=== PATIENT | female | born 1930 | race Caucasian/White ===

== ENCOUNTER 2016-12-04 14:43 | Inpatient (IN) | payer MEDICARE ==
[~2016-12-04] VITALS: Ht 165.1 cm; Wt 51.2 kg
--- NOTE | 2016-12-04 17:42 | DIAGNOSTIC IMAGING REPORT ---
PROCEDURE: CT HEAD WITHOUT CONTRAST INDICATION: Ground level fall with right-sided pain, initial encounter TECHNIQUE: Noncontrast axial images with sagittal and coronal reformations. COMPARISON: None. FINDINGS: Large right frontal contusion associated with left cerebellar and bifrontal parenchymal contusions. Mild cortical atrophy and normal ventricular system. Minor white matter chronic ischemic changes . Tiny left frontal subdural hematoma. There is no mass, CVA or midline shift. Visualized mastoids and sinuses are clear. IMPRESSION: 1. Large right frontal scalp contusion with left cerebellar and bifrontal parenchymal contusions 2. Tiny left frontal subdural hematoma 3. Mild atrophy and minor white matter chronic ischemic changes 4. Findings discussed with Dr. Rogers at 05:39 p.m., [place] Standard Time.
--- NOTE | 2016-12-04 17:43 | DIAGNOSTIC IMAGING REPORT ---
PROCEDURE: CT CERVICAL SPINE W/O CONTRAST CLINICAL INDICATION: Ground level fall with neck pain, initial encounter TECHNIQUE: Noncontrast axial images with sagittal and coronal reformations. COMPARISON: None. FINDINGS: No fracture or dislocation. Severe degenerative changes most prominent at C5-6 and C6-7. Straightening of the cervical spine. Moderate bilateral C5-6 and C6-7 foraminal and spinal stenosis. Paraspinal soft tissues are unremarkable. IMPRESSION: 1. No acute change 2. Severe degenerative changes with C5-6 and C6-7 bilateral foraminal and spinal stenosis 3. Results discussed with Dr. Rogers All CT scans at this facility use dose modulation, iterative reconstruction, and/or weight-based dosing when appropriate to reduce radiation dose to as low as reasonably achievable.
--- NOTE | 2016-12-04 18:25 | ED ORDER SUMMARY ---
..... Patient: MICHELET ECHEVARRIA OrderSheet [facility] VisitID: [id number] [place] [address] 85y, F Registration Date/Time: 12/04/2016 ORDER SHEET Weight: 55.7 kg (stated) Allergies: Roxicet GENERAL ORDERS: CT Cervical Spine wo Cont Urgent (16:51 12/04/2016 DDean R.N. verbal order read back to Noa ZARCO) (Ack 16:55 Gris) (18:01 Chad) CT Head wo Cont Urgent (16:51 12/04/2016 DDean R.N. verbal order read back to Noa ZARCO) (Ack 16:55 Gris) (18:01 Chad) CBC w Diff Urgent (18:14 12/04/2016 Noa ZARCO) (Ack 18:15 TBergley) (19:21 DDean R.N.) CMP Urgent (18:14 12/04/2016 Noa ZARCO) (Ack 18:15 TBergley) (19:21 DDean R.N.) PT with INR Urgent (18:14 12/04/2016 Noa ZARCO) (Ack 18:15 TBergley) (19:21 DDean R.N.) UA-Culture if indicated Urgent (18:17 12/04/2016 Noa ZARCO) (Ack 18:21 TBergley) (19:36 ALawrence ER Tech1) Hip 2V Right w AP Pelvis Urgent (18:37 12/04/2016 DDean R.N. verbal order read back to Noa ZARCO) (Ack 18:46 TBergley) (18:51 DDean R.N.) MEDICATION ORDERS: Tylenol PO 500 mg (NOW) (17:05 12/04/2016 DDean R.N. per protocol) (17:07 DDean R.N.) Zofran ODT PO 4 mg (NOW) (17:06 12/04/2016 DDean R.N. per protocol) (17:08 DDean R.N.) Tdap IM 0.5 mL (NOW) (17:53 12/04/2016 Noa ZARCO) (Ack 18:37 DDean R.N.) (20:24 DDean R.N.) IV FLUIDS: IV Saline Lock (18:14 12/04/2016 Noa ZARCO) (Ack 18:33 DDean R.N.) (19:21 DDean R.N.) ORDER SHEET NOTES: [Electronically signed by Stacey Nguyen R.N. (20:31 12/04/2016)] [Electronically signed by Luis Felipe Rogers MD (22:06 12/04/2016)] [Electronically locked/signed by Stacey Nguyen R.N. (20:31 12/04/2016)]
--- NOTE | 2016-12-04 18:25 | ED ORDER SUMMARY ---
..... Patient: MICHELET ECHEVARRIA OrderSheet [facility] VisitID: [id number] [place] [address] 85y, F Registration Date/Time: 12/04/2016 ORDER SHEET Weight: 55.7 kg (stated) Allergies: Roxicet GENERAL ORDERS: CT Cervical Spine wo Cont Urgent (16:51 12/04/2016 DDean R.N. verbal order read back to Noa ZARCO) (Ack 16:55 Gris) (18:01 Chad) CT Head wo Cont Urgent (16:51 12/04/2016 DDean R.N. verbal order read back to Noa ZARCO) (Ack 16:55 Gris) (18:01 Chad) CBC w Diff Urgent (18:14 12/04/2016 Noa ZARCO) (Ack 18:15 TBergley) (19:21 DDean R.N.) CMP Urgent (18:14 12/04/2016 Noa ZARCO) (Ack 18:15 TBergley) (19:21 DDean R.N.) PT with INR Urgent (18:14 12/04/2016 Noa ZARCO) (Ack 18:15 TBergley) (19:21 DDean R.N.) UA-Culture if indicated Urgent (18:17 12/04/2016 Noa ZARCO) (Ack 18:21 TBergley) (19:36 ALawrence ER Tech1) Hip 2V Right w AP Pelvis Urgent (18:37 12/04/2016 DDean R.N. verbal order read back to Noa ZARCO) (Ack 18:46 TBergley) (18:51 DDean R.N.) MEDICATION ORDERS: Tylenol PO 500 mg (NOW) (17:05 12/04/2016 DDean R.N. per protocol) (17:07 DDean R.N.) Zofran ODT PO 4 mg (NOW) (17:06 12/04/2016 DDean R.N. per protocol) (17:08 DDean R.N.) Tdap IM 0.5 mL (NOW) (17:53 12/04/2016 Noa ZARCO) (Ack 18:37 DDean R.N.) (20:24 DDean R.N.) IV FLUIDS: IV Saline Lock (18:14 12/04/2016 Noa ZARCO) (Ack 18:33 DDean R.N.) (19:21 DDean R.N.) ORDER SHEET NOTES: [Electronically signed by Stacey Nguyen R.N. (20:31 12/04/2016)] [Electronically signed by Luis Felipe Rogers MD (22:06 12/04/2016)] [Electronically locked/signed by Stacey Nguyen R.N. (20:31 12/04/2016)]
--- NOTE | 2016-12-04 18:25 | ED CLINICAL REPORT ---
Clinical Report - Physicians/Mid Levels [facility] [address] [place] [address] 12/04/2016 14:44 Patient: MICHELET ECHEVARRIA Time Seen: 16 :46. Arrived- By ambulance. Historian- EMS personnel, daughter and patient's physician. History limited by dementia. HISTORY OF PRESENT ILLNESS Chief Complaint: INJURY TO HEAD. Location of injuries- head. The injury occurred just prior to arrival. Fell. ( Pt was in the dining room and fell. Mechanism was unknown. LOC is unknown.). ([facility]). The patient complains of mild pain. The patient sustained a blow to the head. No neck pain. Pt's daughter and physician believe that Ms Echevarria' dementia is severe enough that [facility] no longer can provide adequate care. Her. REVIEW OF SYSTEMS No seizure, numbness, loss of vision, chest pain or difficulty breathing. No laceration or fever. She has had hearing loss. She has had similar symptoms previously. Has not recently been ill. CAVEAT: DEMENTIA MAKES COMPLETE ROS IMPOSSIBLE/UNRELIABLE. PAST HISTORY [place]/[facility]. Tetanus immunization status is unknown. SOCIAL HISTORY Resides in an assisted living center. ADDITIONAL NOTES The nursing notes have been reviewed. PHYSICAL EXAM Vital Signs: 12/04/2016 20:10 BP: 151/72. HR: 82. RR: 18. O2 saturation: 98%. 12/04/2016 19:05 BP: 188/70. HR: 78. RR: 20. O2 saturation: 98%. 12/04/2016 18:00 BP: 180/70. HR: 80. RR: 20. O2 saturation: 98%. 12/04/2016 16:15 BP: 182/80. HR: 73. RR: 18. O2 saturation: 100%. 12/04/2016 14:30 BP: 144/65. HR: 75. RR: 20. O2 saturation: 96%. Temp: 98.3 F. Pain level now: 0/10. Appearance: Alert. No acute distress. No backboard or C-collar. (Pleasant and chatty. Able to follow commands fully but answers questions in clear [place] that do not pertain to the question asked. Her daughter states that this is baseline for her). Head: Right frontal area: moderate tenderness and swelling, small abrasion and medium ecchymosis. No laceration, foreign body or deformity. Eyes: Pupils equal, round and reactive to light. EOM intact. ENT: No dental injury. Neck: Painless ROM. Non-tender. CVS: Normal heart rate and rhythm. Heart sounds normal. Respiratory: Breath sounds normal. Chest nontender. Abdomen: Soft and nontender. Back: No tenderness. ROM normal. Extremities: Normal inspection. Pelvis stable. Extremities atraumatic. Neuro: [place] Coma Scale: 14- eyes open spontaneously (4); best verbal response- disoriented (4); best motor response- obeys commands (6). Speech normal. No cranial nerve deficit. No motor deficit. Normal gait. No sensory deficit. LABS, X-RAYS, AND EKG X-Rays: Right hip negative. CT C-Spine: (PROCEDURE: CT CERVICAL SPINE W/O CONTRAST CLINICAL INDICATION: Ground level fall with neck pain, initial encounter TECHNIQUE: Noncontrast axial images with sagittal and coronal reformations. COMPARISON: None. FINDINGS: No fracture or dislocation. Severe degenerative changes most prominent at C5-6 and C6-7. Straightening of the cervical spine. Moderate bilateral C5-6 and C6-7 foraminal and spinal stenosis. Paraspinal soft tissues are unremarkable. IMPRESSION: 1. No acute change 2. Severe degenerative changes with C5-6 and C6-7 bilateral foraminal and spinal stenosis 3. Results discussed with Dr. Rogers All CT scans at this facility use dose modulation, iterative reconstruction, and/or weight-based dosing when appropriate to reduce radiation dose to as low as reasonably achievable. Electronically Final signed by:Enmanuel Pedraza MD 12/04/2016 5:43:19 PM). CT Head: (PROCEDURE: CT HEAD WITHOUT CONTRAST INDICATION: Ground level fall with right-sided pain, initial encounter TECHNIQUE: Noncontrast axial images with sagittal and coronal reformations. COMPARISON: None. FINDINGS: Large right frontal contusion associated with left cerebellar and bifrontal parenchymal contusions. Mild cortical atrophy and normal ventricular system. Minor white matter chronic ischemic changes . Tiny left frontal subdural hematoma. There is no mass, CVA or midline shift. Visualized mastoids and sinuses are clear. IMPRESSION: 1. Large right frontal scalp contusion with left cerebellar and bifrontal parenchymal contusions 2. Tiny left frontal subdural hematoma 3. Mild atrophy and minor white matter chronic ischemic changes 4. Findings discussed with Dr. Rogers at 05:39 p.m., [place] Standard Time. Electronically Final signed by:Enmanuel Pedraza MD 12/04/2016 5:42:31 PM). Note - Tests: (PROCEDURE: XR HIP 2VW W W/O AP PELVIS-RT INDICATION: TRAUMA/INJURY, initial encounter TECHNIQUE: AP view of the pelvis and hips with lateral view of the right hip. COMPARISON: None. FINDINGS: RIGHT HIP: No fracture or dislocation. PELVIS: Osteopenia. Mild degenerative changes of the bilateral hip joints. Soft tissues are unremarkable . IMPRESSION: 1. No acute changes 2. Mild bilateral hip degenerative changes. Electronically Final signed by:Enmanuel Pedraza MD 12/04/2016 7:18:29 PM). PROGRESS AND PROCEDURES Course of Care: 18:02 12/04/16. Per Dr العراقي goal of care is comfort with need for increased level of care 18:15 12/04/16. Zenaida San Daughter. [phone] I had a long phone discussion which confirms goal of care is comfort and accesses to increased level of dementia care. In speaking with pt's daughter and confirmed by Dr العراقي the goal of care is comfort and a safe place while a higher level of care (from [facility]) is arranged. She (Zenaida) understands that the patient could deteriorate and from head injury but neurosurgical would be heroic, futile and not desired. Neurosurgical treatment is not desired. Dr Conner is agreeable with this. 19:19 12/04/16. Daughter is here and confirms comfort care plan in person. I also personally spoke with Dr Palma and wrote transition orders. Disposition orders written. Disposition: Not admitted. CLINICAL IMPRESSION GROUND LEVEL FALL L CEREBELLAR AND BIFRONTAL PARENCHYMAL (Brain) CONTUSIONS WITH "TINY" SUBDURAL HEMATOMA SEVERE DEMENTIA INADEQUATE LIVING SITUATION GOAL OF CARE COMFORT. (Electronically signed by Luis Felipe Rogers MD 12/04/2016 22:06)
--- NOTE | 2016-12-04 18:25 | ED NURSING NOTES ---
Clinical Report - Nurses [facility] [place] [address] 12/04/2016 14:44 Patient: MICHELET ECHEVARRIA TRIAGE Triage time 1430. Acuity: LEVEL 3. Chief Complaint: INJURY TO HEAD and (Pt in with egg sized raised hematoma to right upper forehead. Pt had GLF at alf, not witnessed but "heard" - pt was found on ground, awake but "dazed" alf stafff states pt is back to her "baseline" --has hx of dementia). [place] COMA SCORE: [place] Coma Scale: 14- eyes open spontaneously (4); best verbal response- disoriented (4); best motor response- obeys commands (6). --14:53 Stacey Nguyen R.N. 14:30 12/04/16. BP: 144/65. HR: 75. RR: 20. O2 saturation: 96% on room air. Temp: 98.3 F. Pain level now: 0/10. --14:53 Stacey Nguyen R.N. Weight: 55.7 kg stated. Height/Length: 65 inches Estimated. BMI: 20.5. --14:46 Stacey Nguyen R.N. Medications Seroquel 50mg BID. --14:50 Stacey Nguyen R.N. Divalproex Sodium Oral. --14:50 Stacey Nguyen R.N. Hydroxazine 25mg QUID prn anxiety . --14:52 Stacey Nguyen R.N. Tylenol 325mg 2 tabs q 4-6 hoours prn . --14:52 Stacey Nguyen R.N. Allergies Roxicet. --14:51 Stacey Nguyen R.N. History Arrived by EMS. Historian: EMS. Unaccompanied. Primary physician (ken). This occurred just prior to arrival. Mechanism of injury: fell. ( Pt denies neck or back pain,). No neck pain. PAST MEDICAL HX: ( dementia, CKD, Vit D deficiency , Constipation, depression, hemorrhoids). SOCIAL HX: Never smoker. No alcohol use. --14:53 Stacey Nguyen R.N. Interventions ID band on patient. To treatment room. --14:53 Stacey Nguyen R.N. PHYSICAL ASSESSMENT 14:30. To room via stretcher. GENERAL / NEURO / PSYCH: Alert. Appears in pain. [place] Coma Scale: 14- eyes open spontaneously (4); best verbal response- disoriented (4); best motor response- obeys commands (6). HEENT: Right frontal area: tenderness and swelling. RESPIRATORY: Respirations not labored. CVS: Capillary refill less than 2 seconds. BACK: No neck or back tenderness. ROM normal to the neck and back. SKIN: Skin is warm and dry. --14:49 Stacey Nguyen R.N. NURSING PROGRESS NOTES 14:30. Cold pack applied. Patient gowned. Head of bed elevated. Reassurance given. Patient identifiers checked. Call light placed in reach. Side rails up. Bed placed in lowest position. Patient ready for evaluation- chart flagged. --14:48 Stacey Nguyen R.N. 15:15. ( Pt standing at bedside. asking for po fluids, and asking what happened to her. Escorted back into bed, ice pack renewed. given warm blanklet). --16:24 Stacey Nguyen R.N. 16:15. ( Pt up, walking to bathroom, states she is looking for her dog. reassured about dog, escorted back to bed. given po fluids). --16:25 Stacey Nguyen R.N. 16:15 12/04/16. BP: 182/80. HR: 73. RR: 18. O2 saturation: 100% on room air. Temp: deferred. Pain level now: cannot qualify. Additional comments: pt c/o pain to head, but doesnt understand 1-10 numbering, . --17:05 Stacey Nguyen R.N. 16:40 12/04/2016 Tylenol (Acetaminophen) PO Tablets 500 mg given. --17:07 Stacey Nguyen R.N. 16:45 12/04/2016 Zofran ODT (Ondansetron) PO Oral Disintegrating Tablets 4 mg given. Allergies verified and confirmed 5 rights. --17:08 Stacey Nguyen R.N. 16:40 pt given po tylenol for c/o pain, now stating she is nauseated. given ODT zofran for that. --17:08 Stacey Nguyen R.N. 16:53. Patient transported to CT by stretcher with tech. --17:09 Stacey Nguyen R.N. 17:05. Patient returned from CT by stretcher with tech. --17:44 Stacey Nguyen R.N. 17:30. ( Pt standing by door, calling for her dog. reassured her that dog is at alf and ok. pt ice pack refreshed and placed back in bed). --17:45 Stacey Nguyen R.N. 18:00. ( Pt again walking in [place], states her left hip hurts with ambulation. Pt moved from room #6, to room #10 for visability). --18:51 Stacey Nguyen R.N. 18:00 12/04/16. BP: 180/70. HR: 80. RR: 20. O2 saturation: 98% on room air. Pain level now: cannot qualify. --19:19 Stacey Nguyen R.N. 19:00 12/04/2016 Site #1 started via IV in the right with an 20g angiocath, with aseptic technique and good blood return; one attempt. Blood drawn: rainbow set. Labeled in the presence of the patient and sent to the lab. Saline lock flushed with 10 mL saline. --19:20 Stacey Nguyen R.N. 18:00. HENRIETTA COMA SCORE: [place] Coma Scale: 14- eyes open spontaneously (4); best verbal response- disoriented (4); best motor response- obeys commands (6). --19:22 Stacey Nguyen R.N. 18:35. Patient transported to radiology by stretcher with tech. --19:22 Patrick, Stacey, R.N. 18:45. Patient returned from radiology by stretcher with tech. --19:22 Stacey Nguyen R.N. 18:50. ( ambulated to bathroom with assist, slightly unsteady on feet, c/o cont right hip/thigh pain). --19:23 Stacey Nguyen R.N. 18:50. Patient ID band checked for patient name and birthdate: patient confirmed. Clean catch urine collected; sample sent to lab for urinalysis and culture. Specimen labeled in the presence of the patient. --19:24 Stacey Nguyen R.N. 19:05 daughter here at bedside talking with pt. Daughter states that pt is at her baseline mention/confusion. --19:24 Stacey Nguyen R.N. HENRIETTA COMA SCORE: [place] Coma Scale: 14- eyes open spontaneously (4); best verbal response- disoriented (4); best motor response- obeys commands (6). --19:25 Stacey Nguyen R.N. 19:05 12/04/16. BP: 188/70. HR: 78. RR: 20. O2 saturation: 98% on room air. Temp: deferred. Pain level now: cannot qualify. --19:25 Stacey Nguyen R.N. 19:41 12/04/16. ( h&p given to pts daughter to assist with filling out.). --19:41 Chetna Lopes 19:55 12/04/16. ( ERMD in to talk with daughter re findings and follow up). --19:55 Stacey Nguyen R.N. 20:12 12/04/2016 IV Saline Lock Drip IV Continued: upon admission at the rate of 0 mL/hr. 0 mL remaining bag #1. IV patency established. IV site checked: no pain, redness, or swelling. IV flushed thoroughly. --20:12 Stacey Nguyen R.N. 20:13 12/04/2016 Site #[address] upon admission; patent. Converted to saline lock. --20:13 Stacey Nguyen R.N. 20:14 12/04/2016 TDAP IM 0.5 mL given. 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 Given in the left deltoid. Allergies verified and confirmed 5 rights. Vaccine information statement provided to the patient's family. --20:24 Stacey Nguyen R.N. DISPOSITION / DISCHARGE 20:21 12/04/16. Condition at departure: improved and stable. Admitted to Acute Care. Transported via stretcher by tech. Report was given. (carlene). HENRIETTA COMA SCORE: [place] Coma Scale: 14- eyes open spontaneously (4); best verbal response- disoriented (4); best motor response- obeys commands (6). --20:22 Stacey Nguyen R.N. 20:10 12/04/16. BP: 151/72. HR: 82. RR: 18. O2 saturation: 98% on room air. Temp: deferred. Pain level now: cannot qualify. --20:22 Stacey Nguyen R.N. Locked/Released at 12/04/2016 20:31 by Stacey Nguyen R.N.
--- NOTE | 2016-12-04 18:25 | ED CLINICAL REPORT ---
Clinical Report - Physicians/Mid Levels [facility] [address] [place] [address] 12/04/2016 14:44 Patient: MICHELET ECHEVARRIA Time Seen: 16 :46. Arrived- By ambulance. Historian- EMS personnel, daughter and patient's physician. History limited by dementia. HISTORY OF PRESENT ILLNESS Chief Complaint: INJURY TO HEAD. Location of injuries- head. The injury occurred just prior to arrival. Fell. ( Pt was in the dining room and fell. Mechanism was unknown. LOC is unknown.). ([facility]). The patient complains of mild pain. The patient sustained a blow to the head. No neck pain. Pt's daughter and physician believe that Ms Echevarria' dementia is severe enough that [facility] no longer can provide adequate care. Her. REVIEW OF SYSTEMS No seizure, numbness, loss of vision, chest pain or difficulty breathing. No laceration or fever. She has had hearing loss. She has had similar symptoms previously. Has not recently been ill. CAVEAT: DEMENTIA MAKES COMPLETE ROS IMPOSSIBLE/UNRELIABLE. PAST HISTORY [place]/[facility]. Tetanus immunization status is unknown. SOCIAL HISTORY Resides in an assisted living center. ADDITIONAL NOTES The nursing notes have been reviewed. PHYSICAL EXAM Vital Signs: 12/04/2016 20:10 BP: 151/72. HR: 82. RR: 18. O2 saturation: 98%. 12/04/2016 19:05 BP: 188/70. HR: 78. RR: 20. O2 saturation: 98%. 12/04/2016 18:00 BP: 180/70. HR: 80. RR: 20. O2 saturation: 98%. 12/04/2016 16:15 BP: 182/80. HR: 73. RR: 18. O2 saturation: 100%. 12/04/2016 14:30 BP: 144/65. HR: 75. RR: 20. O2 saturation: 96%. Temp: 98.3 F. Pain level now: 0/10. Appearance: Alert. No acute distress. No backboard or C-collar. (Pleasant and chatty. Able to follow commands fully but answers questions in clear Fijian that do not pertain to the question asked. Her daughter states that this is baseline for her). Head: Right frontal area: moderate tenderness and swelling, small abrasion and medium ecchymosis. No laceration, foreign body or deformity. Eyes: Pupils equal, round and reactive to light. EOM intact. ENT: No dental injury. Neck: Painless ROM. Non-tender. CVS: Normal heart rate and rhythm. Heart sounds normal. Respiratory: Breath sounds normal. Chest nontender. Abdomen: Soft and nontender. Back: No tenderness. ROM normal. Extremities: Normal inspection. Pelvis stable. Extremities atraumatic. Neuro: [place] Coma Scale: 14- eyes open spontaneously (4); best verbal response- disoriented (4); best motor response- obeys commands (6). Speech normal. No cranial nerve deficit. No motor deficit. Normal gait. No sensory deficit. LABS, X-RAYS, AND EKG X-Rays: Right hip negative. CT C-Spine: (PROCEDURE: CT CERVICAL SPINE W/O CONTRAST CLINICAL INDICATION: Ground level fall with neck pain, initial encounter TECHNIQUE: Noncontrast axial images with sagittal and coronal reformations. COMPARISON: None. FINDINGS: No fracture or dislocation. Severe degenerative changes most prominent at C5-6 and C6-7. Straightening of the cervical spine. Moderate bilateral C5-6 and C6-7 foraminal and spinal stenosis. Paraspinal soft tissues are unremarkable. IMPRESSION: 1. No acute change 2. Severe degenerative changes with C5-6 and C6-7 bilateral foraminal and spinal stenosis 3. Results discussed with Dr. Rogers All CT scans at this facility use dose modulation, iterative reconstruction, and/or weight-based dosing when appropriate to reduce radiation dose to as low as reasonably achievable. Electronically Final signed by:Enmanuel Pedraza MD 12/04/2016 5:43:19 PM). CT Head: (PROCEDURE: CT HEAD WITHOUT CONTRAST INDICATION: Ground level fall with right-sided pain, initial encounter TECHNIQUE: Noncontrast axial images with sagittal and coronal reformations. COMPARISON: None. FINDINGS: Large right frontal contusion associated with left cerebellar and bifrontal parenchymal contusions. Mild cortical atrophy and normal ventricular system. Minor white matter chronic ischemic changes . Tiny left frontal subdural hematoma. There is no mass, CVA or midline shift. Visualized mastoids and sinuses are clear. IMPRESSION: 1. Large right frontal scalp contusion with left cerebellar and bifrontal parenchymal contusions 2. Tiny left frontal subdural hematoma 3. Mild atrophy and minor white matter chronic ischemic changes 4. Findings discussed with Dr. Rogers at 05:39 p.m., [place] Standard Time. Electronically Final signed by:Enmanuel Pedraza MD 12/04/2016 5:42:31 PM). Note - Tests: (PROCEDURE: XR HIP 2VW W W/O AP PELVIS-RT INDICATION: TRAUMA/INJURY, initial encounter TECHNIQUE: AP view of the pelvis and hips with lateral view of the right hip. COMPARISON: None. FINDINGS: RIGHT HIP: No fracture or dislocation. PELVIS: Osteopenia. Mild degenerative changes of the bilateral hip joints. Soft tissues are unremarkable . IMPRESSION: 1. No acute changes 2. Mild bilateral hip degenerative changes. Electronically Final signed by:Enmanuel Pedraza MD 12/04/2016 7:18:29 PM). PROGRESS AND PROCEDURES Course of Care: 18:02 12/04/16. Per Dr العراقي goal of care is comfort with need for increased level of care 18:15 12/04/16. Zenaida San Daughter. [phone] I had a long phone discussion which confirms goal of care is comfort and accesses to increased level of dementia care. In speaking with pt's daughter and confirmed by Dr العراقي the goal of care is comfort and a safe place while a higher level of care (from [facility]) is arranged. She (Zenaida) understands that the patient could deteriorate and from head injury but neurosurgical would be heroic, futile and not desired. Neurosurgical treatment is not desired. Dr Conner is agreeable with this. 19:19 12/04/16. Daughter is here and confirms comfort care plan in person. I also personally spoke with Dr Palma and wrote transition orders. Disposition orders written. Disposition: Not admitted. CLINICAL IMPRESSION GROUND LEVEL FALL L CEREBELLAR AND BIFRONTAL PARENCHYMAL (Brain) CONTUSIONS WITH "TINY" SUBDURAL HEMATOMA SEVERE DEMENTIA INADEQUATE LIVING SITUATION GOAL OF CARE COMFORT. (Electronically signed by Luis Felipe Rogers MD 12/04/2016 22:06)
--- NOTE | 2016-12-04 18:25 | ED NURSING NOTES ---
Clinical Report - Nurses [facility] [place] [address] 12/04/2016 14:44 Patient: MICHELET ECHEVARRIA TRIAGE Triage time 1430. Acuity: LEVEL 3. Chief Complaint: INJURY TO HEAD and (Pt in with egg sized raised hematoma to right upper forehead. Pt had GLF at senior care, not witnessed but "heard" - pt was found on ground, awake but "dazed" senior care stafff states pt is back to her "baseline" --has hx of dementia). HENRIETTA COMA SCORE: [place] Coma Scale: 14- eyes open spontaneously (4); best verbal response- disoriented (4); best motor response- obeys commands (6). --14:53 Stacey Nguyen R.N. 14:30 12/04/16. BP: 144/65. HR: 75. RR: 20. O2 saturation: 96% on room air. Temp: 98.3 F. Pain level now: 0/10. --14:53 Stacey Nguyen R.N. Weight: 55.7 kg stated. Height/Length: 65 inches Estimated. BMI: 20.5. --14:46 Stacey Nguyen R.N. Medications Seroquel 50mg BID. --14:50 Stacey Nguyen R.N. Divalproex Sodium Oral. --14:50 Stacey Nguyen R.N. Hydroxazine 25mg QUID prn anxiety . --14:52 Stacey Nguyen R.N. Tylenol 325mg 2 tabs q 4-6 hoours prn . --14:52 Stacey Nguyen R.N. Allergies Roxicet. --14:51 Stacey Nguyen R.N. History Arrived by EMS. Historian: EMS. Unaccompanied. Primary physician (ken). This occurred just prior to arrival. Mechanism of injury: fell. ( Pt denies neck or back pain,). No neck pain. PAST MEDICAL HX: ( dementia, CKD, Vit D deficiency , Constipation, depression, hemorrhoids). SOCIAL HX: Never smoker. No alcohol use. --14:53 Stacey Nguyen R.N. Interventions ID band on patient. To treatment room. --14:53 Stacey Nguyen R.N. PHYSICAL ASSESSMENT 14:30. To room via stretcher. GENERAL / NEURO / PSYCH: Alert. Appears in pain. [place] Coma Scale: 14- eyes open spontaneously (4); best verbal response- disoriented (4); best motor response- obeys commands (6). HEENT: Right frontal area: tenderness and swelling. RESPIRATORY: Respirations not labored. CVS: Capillary refill less than 2 seconds. BACK: No neck or back tenderness. ROM normal to the neck and back. SKIN: Skin is warm and dry. --14:49 Stacey Nguyen R.N. NURSING PROGRESS NOTES 14:30. Cold pack applied. Patient gowned. Head of bed elevated. Reassurance given. Patient identifiers checked. Call light placed in reach. Side rails up. Bed placed in lowest position. Patient ready for evaluation- chart flagged. --14:48 Stacey Nguyen R.N. 15:15. ( Pt standing at bedside. asking for po fluids, and asking what happened to her. Escorted back into bed, ice pack renewed. given warm blanklet). --16:24 Stacey Nguyen R.N. 16:15. ( Pt up, walking to bathroom, states she is looking for her dog. reassured about dog, escorted back to bed. given po fluids). --16:25 Stacey Nguyen R.N. 16:15 12/04/16. BP: 182/80. HR: 73. RR: 18. O2 saturation: 100% on room air. Temp: deferred. Pain level now: cannot qualify. Additional comments: pt c/o pain to head, but doesnt understand 1-10 numbering, . --17:05 Stacey Nguyen R.N. 16:40 12/04/2016 Tylenol (Acetaminophen) PO Tablets 500 mg given. --17:07 Stacey Nguyen R.N. 16:45 12/04/2016 Zofran ODT (Ondansetron) PO Oral Disintegrating Tablets 4 mg given. Allergies verified and confirmed 5 rights. --17:08 Stacey Nguyen R.N. 16:40 pt given po tylenol for c/o pain, now stating she is nauseated. given ODT zofran for that. --17:08 Stacey Nguyen R.N. 16:53. Patient transported to CT by stretcher with tech. --17:09 Stacey Nguyen R.N. 17:05. Patient returned from CT by stretcher with tech. --17:44 Stacey Nguyen R.N. 17:30. ( Pt standing by door, calling for her dog. reassured her that dog is at senior care and ok. pt ice pack refreshed and placed back in bed). --17:45 Stacey Nguyen R.N. 18:00. ( Pt again walking in [place], states her left hip hurts with ambulation. Pt moved from room #6, to room #10 for visability). --18:51 Stacey Nguyen R.N. 18:00 12/04/16. BP: 180/70. HR: 80. RR: 20. O2 saturation: 98% on room air. Pain level now: cannot qualify. --19:19 Stacey Nguyen R.N. 19:00 12/04/2016 Site #1 started via IV in the right with an 20g angiocath, with aseptic technique and good blood return; one attempt. Blood drawn: rainbow set. Labeled in the presence of the patient and sent to the lab. Saline lock flushed with 10 mL saline. --19:20 Stacey Nguyen R.N. 18:00. HENRIETTA COMA SCORE: [place] Coma Scale: 14- eyes open spontaneously (4); best verbal response- disoriented (4); best motor response- obeys commands (6). --19:22 Stacey Nguyen R.N. 18:35. Patient transported to radiology by stretcher with tech. --19:22 Patrick, Stacey, R.N. 18:45. Patient returned from radiology by stretcher with tech. --19:22 Stacey Nguyen R.N. 18:50. ( ambulated to bathroom with assist, slightly unsteady on feet, c/o cont right hip/thigh pain). --19:23 Stacey Nguyen R.N. 18:50. Patient ID band checked for patient name and birthdate: patient confirmed. Clean catch urine collected; sample sent to lab for urinalysis and culture. Specimen labeled in the presence of the patient. --19:24 Stacey Nguyen R.N. 19:05 daughter here at bedside talking with pt. Daughter states that pt is at her baseline mention/confusion. --19:24 Stacey Nguyen R.N. HENRIETTA COMA SCORE: [place] Coma Scale: 14- eyes open spontaneously (4); best verbal response- disoriented (4); best motor response- obeys commands (6). --19:25 Stacey Nguyen R.N. 19:05 12/04/16. BP: 188/70. HR: 78. RR: 20. O2 saturation: 98% on room air. Temp: deferred. Pain level now: cannot qualify. --19:25 Stacey Nguyen R.N. 19:41 12/04/16. ( h&p given to pts daughter to assist with filling out.). --19:41 Chetna Lopes 19:55 12/04/16. ( ERMD in to talk with daughter re findings and follow up). --19:55 Stacey Nguyen R.N. 20:12 12/04/2016 IV Saline Lock Drip IV Continued: upon admission at the rate of 0 mL/hr. 0 mL remaining bag #1. IV patency established. IV site checked: no pain, redness, or swelling. IV flushed thoroughly. --20:12 Stacey Nguyen R.N. 20:13 12/04/2016 Site #[address] upon admission; patent. Converted to saline lock. --20:13 Stacey Nguyen R.N. 20:14 12/04/2016 TDAP IM 0.5 mL given. (Lot#: [id number], expiration date: 09/01/2018, [employer]: [employer]). Given in the left deltoid. Allergies verified and confirmed 5 rights. Vaccine information statement provided to the patient's family. --20:24 Stacey Nguyen R.N. DISPOSITION / DISCHARGE 20:21 12/04/16. Condition at departure: improved and stable. Admitted to Acute Care. Transported via stretcher by tech. Report was given. (carlene). HENRIETTA COMA SCORE: [place] Coma Scale: 14- eyes open spontaneously (4); best verbal response- disoriented (4); best motor response- obeys commands (6). --20:22 Stacey Nguyen R.N. 20:10 12/04/16. BP: 151/72. HR: 82. RR: 18. O2 saturation: 98% on room air. Temp: deferred. Pain level now: cannot qualify. --20:22 Stacey Nguyen R.N. Locked/Released at 12/04/2016 20:31 by Stacey Nguyen R.N.
--- NOTE | 2016-12-04 19:18 | DIAGNOSTIC IMAGING REPORT ---
PROCEDURE: XR HIP 2VW W W/O AP PELVIS-RT INDICATION: TRAUMA/INJURY, initial encounter TECHNIQUE: AP view of the pelvis and hips with lateral view of the right hip. COMPARISON: None. FINDINGS: RIGHT HIP: No fracture or dislocation. PELVIS: Osteopenia. Mild degenerative changes of the bilateral hip joints. Soft tissues are unremarkable . IMPRESSION: 1. No acute changes 2. Mild bilateral hip degenerative changes.
[2016-12-04 21:07] VITALS: BP 128/71
[2016-12-04] MEDS ORDERED: DEPAKENE250 MG PO (21:07)
[2016-12-04] MEDS ORDERED: SEROQUEL25 MG PO (21:08)
[2016-12-04] MEDS ORDERED: TYLENOL325 MG PO ×2 (21:09→21:11)
[2016-12-04] MEDS ORDERED: PROCTOSOL HC2.5 % TOP (21:10)
[2016-12-04] MEDS ORDERED: HYDROXYZINE HCL25 MG PO (21:10)
--- NOTE | 2016-12-04 21:35 | Progress Note ---
Subjective General Admission History and Physical Examination Patient Name: Peyton Dorado Admission Date: December 04, 2016 Primary Care Provider: Alcon العراقي M.D. Attending Physician: Abdon Palma M.D. Admitting Physician: Abdon Palma M.D. SUBJECTIVE Historian: Patient's family-daughter Reliability: Good Chief Complaint: Fall with head contusion History of Present Illness: The patient is a 85-year-old white female with a significant past medical history of dementia, traumatic brain injury, posttraumatic stress disorder, chronic kidney disease, B12 deficiency, vitamin D deficiency, who presented to [facility] emergency department on the day of admission secondary to fall with facial/head contusion. [facility] ER evaluation was consistent with bifrontal cerebral contusion, subdural hematoma-minimal. Secondary to the above, the patient was admitted by Abdon Palma M.D. for further evaluation and treatment The history of present illness began on the day of admission when the patient apparently fell striking the right forehead. Unclear whether there was a loss of consciousness. The patient developed a large contusion/hematoma right forehead. She was transferred to [facility] emergency department for further evaluation and treatment. Evaluation at [facility] emergency department showed the patient to normal level of mentation. Vital signs were unremarkable. CT laboratory evaluation was consistent with contusion right forehead, bifrontal brain contusions, small subdermal hematoma. Secondary to the above, the patient was admitted for further evaluation and treatment. PAST MEDICAL HISTORY Illnesses: 1. Posttraumatic stress disorder 2. Dementia 3. Breast CA-WILL 4. Polymyalgia rheumatica 5. Chronic kidney disease 6. Vitamin B12 deficiency 7. Vitamin D deficiency 8. Chronic constipation Allergies: 1. No known drug allergies Medications: 1. Depakote 250 mg by mouth twice a day 2. Seroquel 50 mg by mouth twice a day 3. Hydroxyzine 25 mg by mouth 4 times a day when necessary anxiety Surgery: 1. Left breast lumpectomy 2. Appendectomy Injuries: 1. Traumatic brain injury 2. Fractured arm Hospitalizations: 1. For above surgery and medical problems FAMILY HISTORY Parents: 1. Father, 60 pancreatic,, 2. Mother, , 90, heart failure Siblings: 1. The patient has 11 siblings-health history unknown Children: 1. The patient has 3 children ages 63, 60, 44-no significant health problems Other significant family history: None SOCIAL HISTORY 1. Marital Status: 2. Hoahaoism: Tenriism 3. Education: High school and vocational education 4. Employment History: Retired 5. Occupational health exposures: None HABITS 1. Tobacco: None 2. Drugs: None 3. Alcohol: None 4. Caffeine: 5 cups per day HEALTH SUPERVISION Item/Test 1. Not reviewed IMMUNIZATIONS: 1. Pneumococcal: Unknown 2. Influenza: 2017 3. Tetanus: Unknown REVIEW OF SYSTEMS Remarkable for those things stated in the history of present illness and past medical history. Seventeen point review of system completed with the following notable findings: General: Weakness Eyes: Visual loss Ears: Hearing loss Musculoskeletal: Joint stiffness, muscle Pain, polymyalgia rheumatica Neurological: Fainting, balance problems, seizure disorder, memory loss, headaches, sensation changes Psychological: Anxiety, delusions, loss of interest in enjoyable events Physical Exam Vital Signs / I&Os Vital Signs Date Time Temp Pulse Resp B/P Pulse O2 O2 Flow FiO2 Ox Delivery Rate 12/04 2107 97.5 81 18 128/71 99 Room Air General Appearance Alert, Cooperative, No acute distress HEENT PERRLA, EOMI, Moist mucous membranes, contusion with hematoma right forehead Lungs Clear to auscultation Breasts Not examined Neck Supple, No JVD Cardiovascular Regular rate and rhythm, Normal S1 and S2, No murmurs, gallops, rubs Abdomen Normal bowel sounds, Soft, No tenderness, No guarding Extremities No cyanosis, No clubbing, No edema, Normal pulses Neurological Normal speech, Cranial nerves intact, Strength 5/5 x4 ext's, No lateralizing signs, confused-baseline mental status Psych/Mental Status Mood normal, Confused LAB Results Laboratory Tests 12/04 12/04 1905 1845 Chemistry Plasma Sodium (136 - 145 mmol/L) 143 Plasma Potassium (3.5 - 5.1 mmol/L) 4.2 Plasma Chloride (98 - 107 mmol/L) 103 CO2 (Enzymatic) (21 - 32 mmol/L) 33 BUN (7 - 18 mg/dL) 20 Creatinine (0.6 - 1.3 mg/dL) 1.1 Est GFR ( Amer) (mL/min) >60 Est GFR (Non-Af Amer) (mL/min) 50.17 Glucose (70 - 110 mg/dL) 146 Plasma Calcium (8.5 - 10.1 mg/dL) 8.7 Total Bilirubin (0.0 - 1.0 mg/dL) 0.4 AST (15 - 37 U/L) 23 ALT (12 - 78 U/L) 19 Alkaline Phosphatase (46 - 116 U/L) 67 Total Protein (6.4 - 8.2 g/dL) 6.9 Albumin (3.3 - 5.0 g/dL) 3.6 Coagulation INR (0.8 - 1.2) 1.0 Hematology WBC (4.5 - 11.5 K/uL) 12.1 RBC (4.00 - 5.20 M/uL) 4.98 Hgb (12.0 - 16.0 gm/dL) 14.8 Hct (36.0 - 46.0 %) 45.7 MCV (80 - 100 fL) 92 MCH (26 - 34 pg) 30 RDW (11.6 - 14.8 %) 14.5 Neut % (Auto) (50 - 75 %) 86.6 Lymph % (Auto) (25 - 40 %) 9.2 [place] % (Auto) (3 - 14 %) 3.8 Eos % (Auto) (0 - 4 %) 0.1 Baso % (Auto) (0 - 2 %) 0.3 Plt Count, EDTA (150 - 400 K/uL) 197 PUBS MCHC (31 - 37 g/dL) 32 Urines Urine Color YELLOW Urine Appearance CLEAR Urine pH (5.0 - 8.0) 8.0 Ur Specific [place] (1.010 - 1.030) 1.020 Urine Protein (NEGATIVE) NEGATIVE Urine Ketones (NEGATIVE) NEGATIVE Urine Blood (NEGATIVE) 1+ Urine Nitrite (NEGATIVE) NEGATIVE Urine Bilirubin (NEGATIVE) NEGATIVE Urine Urobilinogen (0.2 - 1.0 EU/dL) 0.2 Ur Leukocyte Esterase (NEGATIVE) NEGATIVE Urine RBC (0 - 1 rbc/hpf) 5-10 Urine WBC (0 - 1 wbc/hpf) 0-1 Ur Epithelial Cells (0 - 5 EPI/hpf) NONE SEEN Urine Bacteria (NONE SEEN) NONE SEEN Urine Glucose (NEGATIVE) NEGATIVE Urine Comment CULT NOT INDICATED Imaging Cervical Spine CT IMPRESSION: 1. No acute change 2. Severe degenerative changes with C5-6 and C6-7 bilateral foraminal and spinal stenosis 3. Results discussed with Dr. Rogers Dictated by: DMITRI BASS MD D: MERLY;12/04/[address] Scan Head IMPRESSION: 1. Large right frontal scalp contusion with left cerebellar and bifrontal parenchymal contusions 2. Tiny left frontal subdural hematoma 3. Mild atrophy and minor white matter chronic ischemic changes 4. Findings discussed with Dr. Rogers at 05:39 p.m., [place] Standard Time. Dictated by: DMITRI BASS MD D: MERLY;12/04/16 1742 Hip/Pelvis X-Ray IMPRESSION: 1. No acute changes 2. Mild bilateral hip degenerative changes. Dictated by: DMITRI BASS MD D: MERLY;12/04/16 1918 Assessment and Plan Problem List 1. Subdural hematoma caused by concussion Plan -Patient presents with findings of subdural hematoma -Subdural hematoma small -Findings discussed with patient/family. Family wishes comfort measures only. Refuses neurosurgical intervention is necessary at this time. Does not wish transfer to Center for further evaluation. -We will honor family's wishes monitor patient with comfort measures with transfer to memory unit/residential facility at time of discharge 2. Cerebral contusion Plan -Findings of cerebral contusion-please see CT scan findings -Comfort measures only at this time. -Plan discharge to residential facility/memory unit 3. Severe dementia Plan -Patient with history of dementia -Mental status unstable with mild agitation and at baseline cognition per patient's family -Continue outpatient medical regimen 4. Posttraumatic stress disorder Status Chronic Onset Date Unknown Plan -Chronic history -No further evaluation. -Continue outpatient medical regimen. -Follow-up with Dr. العراقي 5. Hyperglycemia Status Acute Onset Date Unknown Plan -Patient with mild hyperglycemia -Check fasting blood sugars daily -Monitor 6. Leukocytosis Status Acute Onset Date Unknown Plan -Patient with findings of leukocytosis -Possibly stress related no findings of infectious etiology at this time -Monitor Current status: Fair, unstable Anticipated discharge date: Anticipated discharge in 1-2 days Anticipated discharge placement: [facility], [facility] unit Patient care time: Time spent in chart review, patient interview, physical exam, CPOE, and care documentation: 70 minutes Visit to patient today: 2 Complexity of care: Moderate-High E&M Codes Admission: Inpt-High/[id number]
--- NOTE | 2016-12-04 21:35 | Progress Note ---
Subjective General Admission History and Physical Examination Patient Name: Peyton Dorado Admission Date: December 04, 2016 Primary Care Provider: Alcon العراقي M.D. Attending Physician: Abdon Palma M.D. Admitting Physician: Abdon Palma M.D. SUBJECTIVE Historian: Patient's family-daughter Reliability: Good Chief Complaint: Fall with head contusion History of Present Illness: The patient is a 85-year-old white female with a significant past medical history of dementia, traumatic brain injury, posttraumatic stress disorder, chronic kidney disease, B12 deficiency, vitamin D deficiency, who presented to [facility] emergency department on the day of admission secondary to fall with facial/head contusion. [facility] ER evaluation was consistent with bifrontal cerebral contusion, subdural hematoma-minimal. Secondary to the above, the patient was admitted by Abdon Palma M.D. for further evaluation and treatment The history of present illness began on the day of admission when the patient apparently fell striking the right forehead. Unclear whether there was a loss of consciousness. The patient developed a large contusion/hematoma right forehead. She was transferred to [facility] emergency department for further evaluation and treatment. Evaluation at [facility] emergency department showed the patient to normal level of mentation. Vital signs were unremarkable. CT laboratory evaluation was consistent with contusion right forehead, bifrontal brain contusions, small subdermal hematoma. Secondary to the above, the patient was admitted for further evaluation and treatment. PAST MEDICAL HISTORY Illnesses: 1. Posttraumatic stress disorder 2. Dementia 3. Breast CA-WILL 4. Polymyalgia rheumatica 5. Chronic kidney disease 6. Vitamin B12 deficiency 7. Vitamin D deficiency 8. Chronic constipation Allergies: 1. No known drug allergies Medications: 1. Depakote 250 mg by mouth twice a day 2. Seroquel 50 mg by mouth twice a day 3. Hydroxyzine 25 mg by mouth 4 times a day when necessary anxiety Surgery: 1. Left breast lumpectomy 2. Appendectomy Injuries: 1. Traumatic brain injury 2. Fractured arm Hospitalizations: 1. For above surgery and medical problems FAMILY HISTORY Parents: 1. Father, 60 pancreatic,, 2. Mother, , 90, heart failure Siblings: 1. The patient has 11 siblings-health history unknown Children: 1. The patient has 3 children ages 63, 60, 44-no significant health problems Other significant family history: None SOCIAL HISTORY 1. Marital Status: 2. Pentecostalism: Druze 3. Education: High school and vocational education 4. Employment History: Retired 5. Occupational health exposures: None HABITS 1. Tobacco: None 2. Drugs: None 3. Alcohol: None 4. Caffeine: 5 cups per day HEALTH SUPERVISION Item/Test 1. Not reviewed IMMUNIZATIONS: 1. Pneumococcal: Unknown 2. Influenza: 2017 3. Tetanus: Unknown REVIEW OF SYSTEMS Remarkable for those things stated in the history of present illness and past medical history. Seventeen point review of system completed with the following notable findings: General: Weakness Eyes: Visual loss Ears: Hearing loss Musculoskeletal: Joint stiffness, muscle Pain, polymyalgia rheumatica Neurological: Fainting, balance problems, seizure disorder, memory loss, headaches, sensation changes Psychological: Anxiety, delusions, loss of interest in enjoyable events Physical Exam Vital Signs / I&Os Vital Signs Date Time Temp Pulse Resp B/P Pulse O2 O2 Flow FiO2 Ox Delivery Rate 12/04 2107 97.5 81 18 128/71 99 Room Air General Appearance Alert, Cooperative, No acute distress HEENT PERRLA, EOMI, Moist mucous membranes, contusion with hematoma right forehead Lungs Clear to auscultation Breasts Not examined Neck Supple, No JVD Cardiovascular Regular rate and rhythm, Normal S1 and S2, No murmurs, gallops, rubs Abdomen Normal bowel sounds, Soft, No tenderness, No guarding Extremities No cyanosis, No clubbing, No edema, Normal pulses Neurological Normal speech, Cranial nerves intact, Strength 5/5 x4 ext's, No lateralizing signs, confused-baseline mental status Psych/Mental Status Mood normal, Confused LAB Results Laboratory Tests 12/04 12/04 1905 1845 Chemistry Plasma Sodium (136 - 145 mmol/L) 143 Plasma Potassium (3.5 - 5.1 mmol/L) 4.2 Plasma Chloride (98 - 107 mmol/L) 103 CO2 (Enzymatic) (21 - 32 mmol/L) 33 BUN (7 - 18 mg/dL) 20 Creatinine (0.6 - 1.3 mg/dL) 1.1 Est GFR ( Amer) (mL/min) >60 Est GFR (Non-Af Amer) (mL/min) 50.17 Glucose (70 - 110 mg/dL) 146 Plasma Calcium (8.5 - 10.1 mg/dL) 8.7 Total Bilirubin (0.0 - 1.0 mg/dL) 0.4 AST (15 - 37 U/L) 23 ALT (12 - 78 U/L) 19 Alkaline Phosphatase (46 - 116 U/L) 67 Total Protein (6.4 - 8.2 g/dL) 6.9 Albumin (3.3 - 5.0 g/dL) 3.6 Coagulation INR (0.8 - 1.2) 1.0 Hematology WBC (4.5 - 11.5 K/uL) 12.1 RBC (4.00 - 5.20 M/uL) 4.98 Hgb (12.0 - 16.0 gm/dL) 14.8 Hct (36.0 - 46.0 %) 45.7 MCV (80 - 100 fL) 92 MCH (26 - 34 pg) 30 RDW (11.6 - 14.8 %) 14.5 Neut % (Auto) (50 - 75 %) 86.6 Lymph % (Auto) (25 - 40 %) 9.2 [place] % (Auto) (3 - 14 %) 3.8 Eos % (Auto) (0 - 4 %) 0.1 Baso % (Auto) (0 - 2 %) 0.3 Plt Count, EDTA (150 - 400 K/uL) 197 PUBS MCHC (31 - 37 g/dL) 32 Urines Urine Color YELLOW Urine Appearance CLEAR Urine pH (5.0 - 8.0) 8.0 Ur Specific [place] (1.010 - 1.030) 1.020 Urine Protein (NEGATIVE) NEGATIVE Urine Ketones (NEGATIVE) NEGATIVE Urine Blood (NEGATIVE) 1+ Urine Nitrite (NEGATIVE) NEGATIVE Urine Bilirubin (NEGATIVE) NEGATIVE Urine Urobilinogen (0.2 - 1.0 EU/dL) 0.2 Ur Leukocyte Esterase (NEGATIVE) NEGATIVE Urine RBC (0 - 1 rbc/hpf) 5-10 Urine WBC (0 - 1 wbc/hpf) 0-1 Ur Epithelial Cells (0 - 5 EPI/hpf) NONE SEEN Urine Bacteria (NONE SEEN) NONE SEEN Urine Glucose (NEGATIVE) NEGATIVE Urine Comment CULT NOT INDICATED Imaging Cervical Spine CT IMPRESSION: 1. No acute change 2. Severe degenerative changes with C5-6 and C6-7 bilateral foraminal and spinal stenosis 3. Results discussed with Dr. Rogers Dictated by: DMITRI BASS MD D: MERLY;12/04/[address] Scan Head IMPRESSION: 1. Large right frontal scalp contusion with left cerebellar and bifrontal parenchymal contusions 2. Tiny left frontal subdural hematoma 3. Mild atrophy and minor white matter chronic ischemic changes 4. Findings discussed with Dr. Rogers at 05:39 p.m., [place] Standard Time. Dictated by: DMITRI BASS MD D: MERLY;12/04/16 1742 Hip/Pelvis X-Ray IMPRESSION: 1. No acute changes 2. Mild bilateral hip degenerative changes. Dictated by: DMITRI BASS MD D: MERLY;12/04/16 1918 Assessment and Plan Problem List 1. Subdural hematoma caused by concussion Plan -Patient presents with findings of subdural hematoma -Subdural hematoma small -Findings discussed with patient/family. Family wishes comfort measures only. Refuses neurosurgical intervention is necessary at this time. Does not wish transfer to Center for further evaluation. -We will honor family's wishes monitor patient with comfort measures with transfer to memory unit/snf facility at time of discharge 2. Cerebral contusion Plan -Findings of cerebral contusion-please see CT scan findings -Comfort measures only at this time. -Plan discharge to snf facility/memory unit 3. Severe dementia Plan -Patient with history of dementia -Mental status unstable with mild agitation and at baseline cognition per patient's family -Continue outpatient medical regimen 4. Posttraumatic stress disorder Status Chronic Onset Date Unknown Plan -Chronic history -No further evaluation. -Continue outpatient medical regimen. -Follow-up with Dr. العراقي 5. Hyperglycemia Status Acute Onset Date Unknown Plan -Patient with mild hyperglycemia -Check fasting blood sugars daily -Monitor 6. Leukocytosis Status Acute Onset Date Unknown Plan -Patient with findings of leukocytosis -Possibly stress related no findings of infectious etiology at this time -Monitor Current status: Fair, unstable Anticipated discharge date: Anticipated discharge in 1-2 days Anticipated discharge placement: shelter facility, memory unit Patient care time: Time spent in chart review, patient interview, physical exam, CPOE, and care documentation: 70 minutes Visit to patient today: 2 Complexity of care: Moderate-High E&M Codes Admission: Inpt-High/32824
--- NOTE | 2016-12-04 22:00 | NUR ---
PATIENTHAD A GROUD LEVEL FALL AT [employer]. SHE IS NORMALLY CONFUSED AND WANDERS AT NIGHT TO LOOK FOR HER DOG. SHE BREISED HER FOREHEAD AND R HIP. SHE WAS SITUATED IN ROOM 207 FOR EASY ACCESS BY STAFF. SHE WAS BRIEFLY SEEN BY HOSPITALIST AT THE BEDSIDE.
--- NOTE | 2016-12-04 22:06 | ED DISCHARGE INSTRUCTIONS ---
Patient: MICHELET ECHEVARRIA General Instructions [facility] VisitID: [id number] [address] [place] [address] 85y, F Registration Date/Time: 12/04/2016 GROUND LEVEL FALL L CEREBELLAR AND BIFRONTAL PARENCHYMAL (Brain) CONTUSIONS WITH "TINY" SUBDURAL HEMATOMA SEVERE DEMENTIA INADEQUATE LIVING SITUATION GOAL OF CARE COMFORT. (Electronically signed by Luis Felipe Rogers MD 12/04/2016 22:06)
--- NOTE | 2016-12-04 22:06 | ED MED RECONCILIATION SUMMARY ---
Patient: MICHELET ECHEVARRIA Medication Reconciliation Report [facility] VisitID: [id number] [address] [place] [address] 85y, F Registration Date/Time: 12/04/2016 Weight: 55.7 kg Height/Length: 65 in. BMI: 20.5 ALLERGIES: Roxicet The patient's Home Medications are listed below: THE FOLLOWING MEDICATIONS NEED TO BE RECONCILED: Divalproex Sodium Oral Hydroxazine 25mg QUID prn anxiety Seroquel 50mg BID Tylenol 325mg 2 tabs q 4-6 hoours prn The source(s) of the original Home Medication information: Not obtained. The following Medications were given to the patient in the Emergency Department: Tylenol [PO] PO 500 mg, administered: 12/04/2016 4:40:00 PM Zofran ODT [PO] PO 4 mg, administered: 12/04/2016 4:45:00 PM TDAP [IM] IM 0.5 mL, administered: 12/04/2016 8:14:00 PM The following Medications were prescribed to the patient: None.
--- NOTE | 2016-12-04 22:06 | ED DISCHARGE INSTRUCTIONS ---
Patient: MICHELET ECHEVARRIA General Instructions [facility] VisitID: [id number] [address] [place] [address] 85y, F Registration Date/Time: 12/04/2016 GROUND LEVEL FALL L CEREBELLAR AND BIFRONTAL PARENCHYMAL (Brain) CONTUSIONS WITH "TINY" SUBDURAL HEMATOMA SEVERE DEMENTIA INADEQUATE LIVING SITUATION GOAL OF CARE COMFORT. (Electronically signed by Luis Felipe Rogers MD 12/04/2016 22:06)
--- NOTE | 2016-12-04 22:06 | ED MAR SUMMARY ---
..... Medication Administration Record [facility] [address] [place] [address] Patient: MICHELET ECHEVARRIA Visit ID: [id number] 85y, F Weight: 55.7 kg Height/Length: 65 in BMI: 20.5 ALLERGIES: Roxicet Given 16:40 12/04/2016 Stacey Nguyen RAmaraN. Medication Administered: TYLENOL [PO] (ACETAMINOPHEN), Dose: 500 mg Tablets PO. Medication Ordered: Tylenol PO 500 mg (NOW). Given 16:45 12/04/2016 Stacey Nguyen RAmaraN. Medication Administered: ZOFRAN ODT [PO] (ONDANSETRON), Dose: 4 mg Oral Disintegrating Tablets PO. Medication Ordered: Zofran ODT PO 4 mg (NOW). Given 20:14 12/04/2016 Stacey Nguyen, R.N. Medication Administered: TDAP [IM], Dose: 0.5 mL IM. Medication Ordered: Tdap IM 0.5 mL (NOW).
--- NOTE | 2016-12-04 22:06 | ED MED RECONCILIATION SUMMARY ---
Patient: MICHELET ECHEVARRIA Medication Reconciliation Report [facility] VisitID: [id number] [address] [place] [address] 85y, F Registration Date/Time: 12/04/2016 Weight: 55.7 kg Height/Length: 65 in. BMI: 20.5 ALLERGIES: Roxicet The patient's Home Medications are listed below: THE FOLLOWING MEDICATIONS NEED TO BE RECONCILED: Divalproex Sodium Oral Hydroxazine 25mg QUID prn anxiety Seroquel 50mg BID Tylenol 325mg 2 tabs q 4-6 hoours prn The source(s) of the original Home Medication information: Not obtained. The following Medications were given to the patient in the Emergency Department: Tylenol [PO] PO 500 mg, administered: 12/04/2016 4:40:00 PM Zofran ODT [PO] PO 4 mg, administered: 12/04/2016 4:45:00 PM TDAP [IM] IM 0.5 mL, administered: 12/04/2016 8:14:00 PM The following Medications were prescribed to the patient: None.
--- NOTE | 2016-12-04 22:06 | ED MAR SUMMARY ---
..... Medication Administration Record [facility] [address] [place] [address] Patient: MICHELET ECHEVARRIA Visit ID: [id number] 85y, F Weight: 55.7 kg Height/Length: 65 in BMI: 20.5 ALLERGIES: Roxicet Given 16:40 12/04/2016 Stacey Nguyen RAmaraN. Medication Administered: TYLENOL [PO] (ACETAMINOPHEN), Dose: 500 mg Tablets PO. Medication Ordered: Tylenol PO 500 mg (NOW). Given 16:45 12/04/2016 Stacey Nguyen RAmaraN. Medication Administered: ZOFRAN ODT [PO] (ONDANSETRON), Dose: 4 mg Oral Disintegrating Tablets PO. Medication Ordered: Zofran ODT PO 4 mg (NOW). Given 20:14 12/04/2016 Stacey Nguyen, R.N. Medication Administered: TDAP [IM], Dose: 0.5 mL IM. Medication Ordered: Tdap IM 0.5 mL (NOW).
--- NOTE | 2016-12-05 00:33 | NUR ---
Patients daughter Zenaida talked with me about the prosess that she is going through to get to a memory care place, They have all the paper work done and a nures interview completed. The facility that josh are going with is [facility] in [place] Phone number is [phone].
--- NOTE | 2016-12-05 06:17 | NUR ---
THIS PATIENT SLEPT ON AND OF AND HAS MADE SEVERAL ATTEMPTS TO COME OUT OF BED AND LOOK FOR HER DOG WITHOUT CARE FOR HER IV TUBING. SHE NEEDED A LOT OF ATTENTION AND MONITORING SHE IS AT HIGH RISK OF FALLS.
--- NOTE | 2016-12-05 06:26 | NUR ---
THIS PATIENT SLEPT ON AND OFF AND NEEDED A LOT OF ATTENTION SHE GETS OUT OF BED AND WANDERS AROUND WITHOUT REGARD FOR HER IV TUBING.
[2016-12-05 06:34] VITALS: BP 133/56
--- NOTE | 2016-12-05 07:00 | Progress Note ---
Subjective General The patient is a 85-year-old white female with a significant past medical history of dementia, traumatic brain injury, posttraumatic stress disorder, chronic kidney disease, B12 deficiency, vitamin D deficiency, who presented to [facility] emergency department on the day of admission secondary to fall with facial/head contusion. [facility] ER evaluation was consistent with bifrontal cerebral contusion, subdural hematoma-minimal. Secondary to the above, the patient was admitted by Abdon Palma M.D. for further evaluation and treatment The history of present illness began on the day of admission when the patient apparently fell striking the right forehead. Unclear whether there was a loss of consciousness. The patient developed a large contusion/hematoma right forehead. She was transferred to [facility] emergency department for further evaluation and treatment. Evaluation at [facility] emergency department showed the patient to normal level of mentation. Vital signs were unremarkable. CT laboratory evaluation was consistent with contusion right forehead, bifrontal brain contusions, small subdermal hematoma. Secondary to the above, the patient was admitted for further evaluation and treatment. Patient is looking for her puppy and wants to know where it is. Is not with complaints. Physical Exam Vital Signs / I&Os Vital Signs Date Time Temp Pulse Resp B/P Pulse O2 O2 Flow FiO2 Ox Delivery Rate 12/05 0634 98.2 62 14 133/56 99 Room Air 12/04 2227 Room Air 12/04 2106 97.5 81 18 128/71 99 Room Air I&O 12/05 0000 12/04 1600 12/04 0800 Intake Total Output Total 150 Balance -150 General Appearance Alert, confused HEENT Normal exam Lungs Clear to auscultation, Normal air movement Cardiovascular Regular rate and rhythm, No murmurs, gallops, rubs Abdomen Normal exam, Soft Extremities Normal exam Assessment and Plan Problem List 1. Subdural hematoma caused by concussion Plan Is with comfort measures only 2. Cerebral contusion 3. Severe dementia Plan comfort only watch
--- NOTE | 2016-12-05 07:00 | Progress Note ---
Subjective General The patient is a 85-year-old white female with a significant past medical history of dementia, traumatic brain injury, posttraumatic stress disorder, chronic kidney disease, B12 deficiency, vitamin D deficiency, who presented to [facility] emergency department on the day of admission secondary to fall with facial/head contusion. [facility] ER evaluation was consistent with bifrontal cerebral contusion, subdural hematoma-minimal. Secondary to the above, the patient was admitted by Abdon Palma M.D. for further evaluation and treatment The history of present illness began on the day of admission when the patient apparently fell striking the right forehead. Unclear whether there was a loss of consciousness. The patient developed a large contusion/hematoma right forehead. She was transferred to [facility] emergency department for further evaluation and treatment. Evaluation at [facility] emergency department showed the patient to normal level of mentation. Vital signs were unremarkable. CT laboratory evaluation was consistent with contusion right forehead, bifrontal brain contusions, small subdermal hematoma. Secondary to the above, the patient was admitted for further evaluation and treatment. Patient is looking for her puppy and wants to know where it is. Is not with complaints. Physical Exam Vital Signs / I&Os Vital Signs Date Time Temp Pulse Resp B/P Pulse O2 O2 Flow FiO2 Ox Delivery Rate 12/05 0634 98.2 62 14 133/56 99 Room Air 12/04 2227 Room Air 12/04 2106 97.5 81 18 128/71 99 Room Air I&O 12/05 0000 12/04 1600 12/04 0800 Intake Total Output Total 150 Balance -150 General Appearance Alert, confused HEENT Normal exam Lungs Clear to auscultation, Normal air movement Cardiovascular Regular rate and rhythm, No murmurs, gallops, rubs Abdomen Normal exam, Soft Extremities Normal exam Assessment and Plan Problem List 1. Subdural hematoma caused by concussion Plan Is with comfort measures only 2. Cerebral contusion 3. Severe dementia Plan comfort only watch
--- NOTE | 2016-12-05 10:34 | NUR ---
PT PULLED IV OUT. SUJATHA WALKING IN THE HALLWAY WITH STANDBY ASSIST.
[2016-12-05 13:08] VITALS: BP 120/67
--- NOTE | 2016-12-05 17:34 | NUR ---
PT IS VERY BUSY. SHE IS ONE ON ONE CARE WITH A SITTER AT ALL TIMES. SHE IS IMPULSIVE, DIFFICULT TO REDIRECT, REPEATS THE SAME QUESTION SEVERAL TIMES, DOESN'T RECALL PREVIOUS CONVERSATIONS AND BELIEVES STAFF MEMBERS ARE ALL RELATED TO EACH OTHER SOMEHOW. SHE IS ORIENTED TO SELF ONLY, ENJOYS WALKING IN THE HALLWAY AND IS STEADY ON HER FEET. AT THIS TIME SHE IS PLEASANT AND NOT AGITATED HOWEVER DOES GET PERIODICALLY EMOTIONAL WHEN SHE TALKS ABOUT HER DOG "LADY" WHO IS WITH HER DAUGHTER VANESA.
--- NOTE | 2016-12-06 07:17 | Progress Note ---
Subjective General The patient is a 85-year-old white female with a significant past medical history of dementia, traumatic brain injury, posttraumatic stress disorder, chronic kidney disease, B12 deficiency, vitamin D deficiency, who presented to [facility] emergency department on the day of admission secondary to fall with facial/head contusion. [facility] ER evaluation was consistent with bifrontal cerebral contusion, subdural hematoma-minimal. Patient states the right side of her head where she has lots of bruising hurts, has been up walking lots with staff, has been asking for her dog that she tripped over. No n/v,no acute issues. Goal per family for comfort and d/c [place] facility [place] in 1[place]2 days Physical Exam Vital Signs / I&Os Vital Signs Date Time Temp Pulse Resp B/P Pulse O2 O2 Flow FiO2 Ox Delivery Rate 12/05 1308 98.4 87 16 120/67 97 Room Air I&O 12/06 0000 12/05 1600 12/05 0800 Intake Total 150 395 355 Output Total 250 1100 Balance -100 395 -745 General Appearance Alert, very active and a little driven HEENT lots of bruising at the right head/face Lungs Clear to auscultation, Normal air movement Cardiovascular Regular rate and rhythm Abdomen Soft, No tenderness Extremities No edema Assessment and Plan Problem List 1. Cerebral contusion Plan Has goal for comfort 2. Subdural hematoma caused by concussion Plan Watching only, no further imaging as not going to have any surgery or treatment. 3. Severe dementia Plan Has this with a driving bipolar appearance 4. Posttraumatic stress disorder Status Chronic Onset Date Unknown Plan Has PTSD and is anxious at times. Watch only
--- NOTE | 2016-12-06 07:17 | Progress Note ---
Subjective General The patient is a 85-year-old white female with a significant past medical history of dementia, traumatic brain injury, posttraumatic stress disorder, chronic kidney disease, B12 deficiency, vitamin D deficiency, who presented to [facility] emergency department on the day of admission secondary to fall with facial/head contusion. [facility] ER evaluation was consistent with bifrontal cerebral contusion, subdural hematoma-minimal. Patient states the right side of her head where she has lots of bruising hurts, has been up walking lots with staff, has been asking for her dog that she tripped over. No n/v,no acute issues. Goal per family for comfort and d/c to facility south in 1-2 days Physical Exam Vital Signs / I&Os Vital Signs Date Time Temp Pulse Resp B/P Pulse O2 O2 Flow FiO2 Ox Delivery Rate 12/05 1308 98.4 87 16 120/67 97 Room Air I&O 12/06 0000 12/05 1600 12/05 0800 Intake Total 150 395 355 Output Total 250 1100 Balance -100 395 -745 General Appearance Alert, very active and a little driven HEENT lots of bruising at the right head/face Lungs Clear to auscultation, Normal air movement Cardiovascular Regular rate and rhythm Abdomen Soft, No tenderness Extremities No edema Assessment and Plan Problem List 1. Cerebral contusion Plan Has goal for comfort 2. Subdural hematoma caused by concussion Plan Watching only, no further imaging as not going to have any surgery or treatment. 3. Severe dementia Plan Has this with a driving bipolar appearance 4. Posttraumatic stress disorder Status Chronic Onset Date Unknown Plan Has PTSD and is anxious at times. Watch only
[2016-12-06 11:05] VITALS: BP 143/62
--- NOTE | 2016-12-06 15:19 | NUR ---
NUTRITION ASSESSMENT: S: Pt admitted s/p GLF and head contusion. PMH includes: PTSD, dementia, breast Ca, polymalgia rheumatica, chronic kideny disease, B12 deficiency, vitamin D deficiency, chronic constipation. Pt PO itnake ~10-100%; variable. O: Diet Rx: General Regular Thin NKFA wts: 50.5 kg Ht: 65" IBW: 50-65 kg BMI: 18.5 Est Kcals: ~3330-4507 kcals per day Est Pro: ~50-60 g per day Meds: Rev'd Labs: Rev'd. (12/04) glucose 146, BUN 20, creat 1.1 Skin: rogers score: Rogers Score 21 A: Pt po intake variable which is likely 2/2 mentation hx/o dementia. BMI; underweight class. Rec mighty shakes q meal and BOOST BID between meals to help optmize kcal and protein intake. Rec offer foods and fluids of choice. Noted per MD notes goal is for comofort. RD to continue to monitor nutrition indices and follow up prn/protocol. P: Mighty shakes q meal and boost bid between meals.
--- NOTE | 2016-12-06 17:27 | NUR ---
HAS SLEPT MOST OF DAY. AWAKE NOW EATING DINNER. NO CHANGE IN ASSESSMENT.
--- NOTE | 2016-12-06 22:03 | NUR ---
THIS RN ASSUMED CARE FOR THIS PATIENT AT APPROXIMATELY 1900. PATIENT HAS BEEN SLEEPING MOST OF THE 4 HOUR SHIFT. SEIZURE PADS APPLIED TO THE BED AND BED ALARM TURNED ON. BED IN LOW POSITION WITH SIDE RAILS IN RAISED POSITION. CALL LIGHT WITHIN REACH. FLOOR IS FREE OF ANY OBSTACLES OR DEBRIS PATIENT DID WAKE UP TO URINATE. MD NOTIFIED THAT PATIENT HAS BEEN SLEEPING MOST OF THE DAY. ORDER RECEIVED TO OBTAIN DEPAKOTE LEVEL IN THE MORNING PRIOR TO DISCHARGE. ORDER ENTERED FOR DEPAKOTE LEVEL TO BE DRAWN IN THE MORNING. NO OTHER ORDERS RECEIVED
[2016-12-07 02:08] VITALS: BP 131/47
--- NOTE | 2016-12-07 05:24 | NUR ---
PT HAS BEEN SLEEPING ALL SHIFT, TURNING SELF. GETTING 0200 VITALS PT DID WAKE UP AND SHORTLY AFTER FALLING BACK ASLEEP. DURING THIS TIME I DID OFFER TOILETING AND PT STATED SHE DID NOT NEED THE BATHROOM. LETTING PT SLEEP FURTHER ON DURING THE SHFIT. AROUND 0515 WOKE PT UP TO OFFER TOILETING AGAIN, PT RESPONSE 'I DONT NEED THE BATHROOM RIGHT NOW, I WOULD LIKE TO SLEEP'. REPORTED TO RN. SHORTLY AFTER RETURNED AGAIN FOR ANOTHER ATTEMPT, PT ANSWER WAS STILL THE SAME.
[2016-12-07 06:13] VITALS: BP 129/67
--- NOTE | 2016-12-07 06:27 | Discharge Summary ---
Discharge Summary Report Admit Date 12/04/16 Discharge Date 12/07/16 Admission Diagnosis subdural hematoma, cerebral contusion, demenia, ptsd hx,leukocytosis Discharge Diagnosis same Brief History The patient is a 85-year-old white female with a significant past medical history of dementia, traumatic brain injury, posttraumatic stress disorder, chronic kidney disease, B12 deficiency, vitamin D deficiency, who presented to [facility] emergency department on the day of admission secondary to fall with facial/head contusion. [facility] ER evaluation was consistent with bifrontal cerebral contusion, subdural hematoma-minimal. Secondary to the above, the patient was admitted by Abdon Palma M.D. for further evaluation and treatment The history of present illness began on the day of admission when the patient apparently fell striking the right forehead. Unclear whether there was a loss of consciousness. The patient developed a large contusion/hematoma right forehead. She was transferred to [facility] emergency department for further evaluation and treatment. Evaluation at [facility] emergency department showed the patient to normal level of mentation. Vital signs were unremarkable. CT laboratory evaluation was consistent with contusion right forehead, bifrontal brain contusions, small subdermal hematoma. Hospital Course Patient was awake and alert and very active for the hospitalization, ambulated through the halls. No sig issues medically General Appearance Alert, poor memory HEENT bruising at the right face Lungs Clear to auscultation, Normal air movement Cardiovascular Regular Rate, No murmurs Abdomen Soft, No masses Skin bruising on the right face Neurological confused and a little wound up when awake Lab/Imaging Laboratory Tests 12/07 0400 Toxicology Valproic Acid (50.0 - 150.0 ug/mL) 49.7 Discharge Instructions/Meds d/c to dementia unit. Goal for comfort only.
--- NOTE | 2016-12-07 06:27 | Discharge Summary ---
Discharge Summary Report Admit Date 12/04/16 Discharge Date 12/07/16 Admission Diagnosis subdural hematoma, cerebral contusion, demenia, ptsd hx,leukocytosis Discharge Diagnosis same Brief History The patient is a 85-year-old white female with a significant past medical history of dementia, traumatic brain injury, posttraumatic stress disorder, chronic kidney disease, B12 deficiency, vitamin D deficiency, who presented to [facility] emergency department on the day of admission secondary to fall with facial/head contusion. [facility] ER evaluation was consistent with bifrontal cerebral contusion, subdural hematoma-minimal. Secondary to the above, the patient was admitted by Abdon Palma M.D. for further evaluation and treatment The history of present illness began on the day of admission when the patient apparently fell striking the right forehead. Unclear whether there was a loss of consciousness. The patient developed a large contusion/hematoma right forehead. She was transferred to [facility] emergency department for further evaluation and treatment. Evaluation at [facility] emergency department showed the patient to normal level of mentation. Vital signs were unremarkable. CT laboratory evaluation was consistent with contusion right forehead, bifrontal brain contusions, small subdermal hematoma. Hospital Course Patient was awake and alert and very active for the hospitalization, ambulated through the halls. No sig issues medically General Appearance Alert, poor memory HEENT bruising at the right face Lungs Clear to auscultation, Normal air movement Cardiovascular Regular Rate, No murmurs Abdomen Soft, No masses Skin bruising on the right face Neurological confused and a little wound up when awake Lab/Imaging Laboratory Tests 12/07 0400 Toxicology Valproic Acid (50.0 - 150.0 ug/mL) 49.7 Discharge Instructions/Meds d/c to dementia unit. Goal for comfort only.
--- NOTE | 2016-12-07 06:30 | Provider's Discharge Care Plan ---
Problem, Goal, Plan Problem List 1. Subdural hematoma caused by concussion Instructions: Take meds as directed, comfort measures only 2. Severe dementia Instructions: Take meds as directed, comfort measures only
--- NOTE | 2016-12-07 08:30 | NUR ---
PATIENT A AND O X 1. SEIZURE PADS ON IN BED. DEPAKOTE LEVEL LOW. MD AWARE AND NO CHANGES AT THIS TIME. ORDERS FOR DC WRITTEN BY MD. HEMATOMA TO R FOREHEAD AND R [place]. PATIENT DENIES PAIN.
--- NOTE | 2016-12-07 10:41 | NUR ---
PATIENT DAUGHTER HERE TO TRANSPORT PATIENT TO [facility] TO MEMORY CARE UNIT. REPORT CALLED TO DIMA AT [facility]. NO IV ACCESS. PATIENT ESCORTED OUT OF FACILITY BY FACILITY TECH IN .
== END 2016-12-07 10:45 | DRG 84 ==
LOC: ED SRH 14:43 → ACUTE2 SRH 18:29 → TRANS SRH 18:29 → ACUTE3 SRH 21:45 → ACUTE2 SRH 21:46
PROVIDERS: ADMIT Emergency Medicine Emergency Medical Services
PROC: 3E0234Z Introduction of Serum, Toxoid and Vaccine into Muscle, Percutaneous Approach (ICD-10-PCS; principal; 2016-12-04)
DX: S06.5X9A Traumatic subdural hemorrhage with loss of consciousness of unspecified duration, initial encounter (principal); W18.30XA Fall on same level, unspecified, initial encounter; Y92.129 Unspecified place in nursing home as the place of occurrence of the external cause; Y99.8 Other external cause status; N18.9 Chronic kidney disease, unspecified; F43.12 Post-traumatic stress disorder, chronic; Z87.820 Personal history of traumatic brain injury; F03.90 Unspecified dementia, unspecified severity, without behavioral disturbance, psychotic disturbance, mood disturbance, and anxiety; Z23 Encounter for immunization